=== PATIENT | male | born 1955 | race Caucasian/White ===

== ENCOUNTER 2017-01-14 14:21 | Emergency (ER) | payer BC ==
[2017-01-14 14:54] LABS: Hematocrit 46 % (42-52); Hemoglobin 16.1 g/dl (14.0-18.0); Mean Corpuscular HGB Conc 35 g/dl (31-36); Mean Corpuscular Hemoglobin 32 pg (27-31); Mean Corpuscular Volume 93 fL (80-94); Mean Platelet Volume 8 um3 (7.4-10.4); Red Blood Count 4.99 10^6/ul (4.0-5.4); Red Cell Distribution Width 13 % (10.5-15); White Blood Count 8.3 10^3/ul (3.5-10.8)
--- NOTE | 2017-01-14 15:00 | RAD ---
Indication: Palpitations. 2 views of the chest including dual energy PA views demonstrate no mediastinal shift. Heart is of normal size and configuration. Lung aguilar demonstrate no pleural fluid, pneumonia or pneumothorax. Comparison is made with previous exam dated June 15, 2013. IMPRESSION: No active cardiopulmonary disease is noted.
[2017-01-14 15:09] LABS: Albumin 3.9 g/dL (3.2-5.2); Calcium 9.5 mg/dL (8.6-10.3); EGFR African American 97.4 (>60); EGFR Non-African American 75.7 (>60); Globulin 2.8 g/dL (2-4); Total Bilirubin 0.4 mg/dL (0.2-1.0); Total Protein 6.7 g/dL (6.4-8.9)
[2017-01-14 15:33] LABS: Digoxin 0.8 ng/ml (0.8-2.0)
[2017-01-14 15:47] LABS: TSH (Thyroid Stimulating Horm) 2.05 mcIU/mL (0.34-5.60)
[2017-01-14 16:34] VITALS: BP 105/65
--- NOTE | 2017-01-15 07:49 | ED ---
Bryson Deleon Angela, scribed for Jaime Boyce MD on 01/14/17 at 1521 . HPI Cardiac - HPI Summary HPI Summary: This pt is a 61 y/o male presenting to [facility] c/o atrial fibrillation for 2 weeks. Pt was referred by Dr. Aiken's office for an evaluation and BP of 135/ 100's. Pt reports that he went to his PCP's office last week and was in atrial fibrillation. He states he has felt fatigued then and was told they were going to monitor him. Pt notes his blood pressure yesterday was high and maximum was 148/115. Pt went to his clear coat sprayer's office and was told to come to the ED. He reports he is intermittently in atrial fibrillation but is usually once every 3 months. This time it has been constant for 2 weeks, which is not normal for him. He notes some SOB and chest pressure (rated 5/10 in severity). Pt denies nausea, difficulty swallowing. Pt is currently on lisinopril. Pt is not on any anticoagulants. PMHx includes HI in 2005. During his past HI, pt describes his symptoms as dizziness, unable to focus, "feeling wiped out really fast." He notes he didn't really feel chest pain. - History of Current Complaint Chief Complaint: EDChestPainROMI Stated Complaint: AFIB/HIGH BP Time Seen by Provider: 01/14/17 14:30 Hx Obtained From: Patient Onset/Duration: Started Weeks Ago, Still Present Timing: Constant, Lasting Weeks Current Severity: Moderate Pain Intensity: 5 Pain Scale Used: 0-10 Numeric Chest Pain Location: Diffuse Chest Pain Radiates: No Character: Pressure/Squeezing Associated Signs and Symptoms: Positive: Shortness of Breath. Negative: Chest Pain, Other: - difficulty swallowing - Allergy/Home Medications Allergies/Adverse Reactions: Allergies Allergy/AdvReac Type Severity Reaction Status Date / Time Beta Adrenergic Blockers Allergy Intermediate Hives/Diff. Verified 01/14/17 14: 23 Breathing/I tching Celecoxib [From Celebrex] Allergy Intermediate Hives/Diff. Verified 01/14/17 14: 23 Breathing/I tching Erythromycin Allergy Intermediate Hives Verified 01/14/17 14:23 Glucosamine Allergy Intermediate Hives/Diff. Verified 01/14/17 14:23 Breathing/I tching Niacin Allergy Intermediate Hives/Diff. Verified 01/14/17 14:23 Breathing/I tching Penicillins [PCN] Allergy Intermediate Hives/Diff. Verified 01/14/17 14:23 Breathing/I tching Statins Allergy Intermediate Hives/Diff. Verified 01/14/17 14:23 Breathing/I tching Home Medications: Home Medications Apple Cider Vinegar 500 mg PO BID 01/14/17 [History Confirmed 01/14/17] Aspirin EC Low Dose* [Ecotrin EC Low Dose 81 MG*] 81 mg PO DAILY 01/14/17 [ History Confirmed 01/14/17] Fexofenadine (NF) [Evelina 180 (NF)] 180 mg PO SUTUTHSA 01/14/17 [History Confirmed 01/14/17] Garlic 580 mg PO DAILY 01/14/17 [History Confirmed 01/14/17] [place] [[place] Bowman] 580 mg PO BID 01/14/17 [History Confirmed 01/14/17] Hydrochlorothiazide TAB* [Hydrodiuril TAB*] 25 mg PO DAILY 01/14/17 [History Confirmed 01/14/17] Lisinopril TAB* [Prinivil TAB*] 2.5 mg PO DAILY 01/14/17 [History Confirmed ] Loratadine & Pseudoephedrine [Claritin-D 12 Hour] 1 tab PO .BID MOWEFR 01/14/17 [History Confirmed 01/14/17] Multivitamins/Minerals TAB* [Theragran/minerals TAB*] 1 tab PO DAILY 01/14/17 [ History Confirmed 01/14/17] Nitroglycerin TAB 0.4 MG* 0.4 mg SL Q5M PRN 01/14/17 [History Confirmed 01/14/17 ] Omeprazole CAP* [Prilosec CAP* 20 MG] 20 mg PO QAM 01/14/17 [History Confirmed 01/14/17] Ranitidine TAB (NF) [Zantac TAB (NF)] 150 mg PO BID 01/14/17 [History Confirmed 01/14/17] S-Adenosylmethionine [German-E] 200 mg PO DAILY 01/14/17 [History Confirmed ] [place] ([place]) [Saw [place]] 450 mg PO BID 01/14/17 [History Confirmed 01/14/17] Vitamin B Complex CAP* [B Complex CAP*] 1 cap PO DAILY 01/14/17 [History Confirmed 01/14/17] PMH/Surg Hx/FS Hx/Imm Hx Endocrine/Hematology History: Denies: Hx Diabetes, Hx Thyroid Disease Cardiovascular History: Reports: Hx Angina, Hx Congestive Heart Failure, Hx Coronary Artery Disease, Hx Hypercholesterolemia, Hx Hypertension, Other Cardiovascular Problems/Disorders - CHF, CAD Respiratory History: Reports: Hx Sleep Apnea, Other Respiratory Problems/ Disorders - sleep apnea Denies: Hx Asthma, Hx Chronic Obstructive Pulmonary Disease (COPD) GI History: Reports: Hx Gastrointestinal Bleed, Other GI Disorders - 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 Denies: Hx Ulcer History: Reports: Other Problems/Disorders - acute prostatitis Musculoskeletal History: Reports: Hx Arthritis - bilateral knee - no cartilage, Other Musculoskeletal History - spinal stenosis Sensory History: Reports: Hx Contacts or Glasses Opthamlomology History: Reports: Hx Contacts or Glasses - Surgical History Surgery Procedure, Year, and Place: appendectomy, angioplasty x2, stent 2005, multiple knee surgeries Infectious Disease History: No Infectious Disease History: Denies: Hx Hepatitis, Hx Human Immunodeficiency Virus (HIV), Traveled Outside the [place] in Last 30 Days - Family History Known Family History: Positive: Cardiac Disease - father, Diabetes - father, Other - Mother: CVA, HI, colon CA - Social History Alcohol Use: None Substance Use Type: Reports: None Hx Tobacco Use: No Smoking Status (MU): Never Smoked Tobacco Review of Systems Constitutional: Other - high blood pressure Positive: Fatigue. Negative: Fever, Chills Negative: Other - difficulty swallowing Cardiovascular: Other - chest pressure Positive: Shortness Of Breath Musculoskeletal: Negative Skin: Negative Neurological: Negative All Other Systems Reviewed And Are Negative: Yes Physical Exam - Summary Physical Exam Summary: VITAL SIGNS: Reviewed. GENERAL: Patient is a well-developed and nourished male who is lying comfortable in the stretcher. Patient is not in any acute respiratory distress. HEAD AND FACE: No signs of trauma. No ecchymosis, hematomas or skull depressions. No sinus tenderness. EYES: PERRLA, EOMI x 2, No injected conjunctiva, no nystagmus. EARS: Hearing grossly intact. Ear canals and tympanic membranes are within normal limits. MOUTH: Oropharynx within normal limits. NECK: Supple, trachea is midline, no adenopathy, no JVD, no carotid bruit, no c- spine tenderness, neck with full ROM. CHEST: Symmetric, no tenderness at palpation LUNGS: Clear to auscultation bilaterally. No wheezing or crackles. CVS: Irregularly irregular rate and rhythm, S1 and S2 present, no murmurs or gallops appreciated. ABDOMEN: Soft, non-tender. No signs of distention. No rebound no guarding, and no masses palpated. Bowel sounds are normal. EXTREMITIES: FROM in all major joints, no edema, no cyanosis or clubbing. NEURO: Alert and oriented x 3. No acute neurological deficits. Speech is normal and follows commands. SKIN: Dry and warm Triage Information Reviewed: Yes Vital Signs On Initial Exam: Initial Vitals Temp Pulse Resp BP Pulse Ox 97.5 F 99 16 130/92 98 01/14/17 14:23 01/14/17 14:23 01/14/17 14:23 01/14/17 14:23 01/14/17 14:23 Vital Signs Reviewed: Yes Diagnostics - Vital Signs Vital Signs Temp Pulse Resp BP Pulse Ox 01/14/17 14:42 96 16 99 01/14/17 14:41 134/85 01/14/17 14:23 97.5 F 99 16 130/92 98 - Laboratory Lab Results: Lab Results 01/14/17 01/14/17 01/14/17 Range/Units 14:44 14:44 14:44 WBC 8.3 (3.5-10.8) 10^3/ul RBC 4.99 (4.0-5.4) 10^6/ul Hgb 16.1 (14.0-18.0) g/dl Hct 46 (42-52) % MCV 93 (80-94) fL MCH 32 H (27-31) pg MCHC 35 (31-36) g/dl RDW 13 (10.5-15) % Plt Count 257 (150-450) 10^3/ul MPV 8 (7.4-10.4) um3 Neut % (Auto) 61.3 (38-83) % Lymph % (Auto) 26.1 (25-47) % [place] % (Auto) 9.0 (1-9) % Eos % (Auto) 2.9 (0-6) % Baso % (Auto) 0.7 (0-2) % Absolute Neuts (auto) 5.1 (1.5-7.7) 10^3/ul Absolute Lymphs (auto) 2.2 (1.0-4.8) 10^3/ul Absolute Monos (auto) 0.8 (0-0.8) 10^3/ul Absolute Eos (auto) 0.2 (0-0.6) 10^3/ul Absolute Basos (auto) 0.1 (0-0.2) 10^3/ul Absolute Nucleated RBC 0 10^3/ul Nucleated RBC % 0 Sodium 134 (133-145) mmol/L Potassium 4.0 (3.5-5.0) mmol/L Chloride 100 L (101-111) mmol/L Carbon Dioxide 31 (22-32) mmol/L Anion Gap 3 (2-11) mmol/L BUN 22 (6-24) mg/dL Creatinine 1.00 (0.67-1.17) mg/dL Est GFR ( Amer) 97.4 (>60) Est GFR (Non-Af Amer) 75.7 (>60) BUN/Creatinine Ratio 22.0 H (8-20) Glucose 91 (70-100) mg/dL Lactic Acid (0.5-2.0) mmol/L Calcium 9.5 (8.6-10.3) mg/dL Magnesium 2.0 (1.9-2.7) mg/dL Total Bilirubin 0.40 (0.2-1.0) mg/dL AST 20 (13-39) U/L ALT 10 (7-52) U/L Alkaline Phosphatase 44 (34-104) U/L CK-MB (CK-2) 1.3 (0.6-6.3) ng/mL Troponin I 0.00 (<0.04) ng/mL B-Natriuretic Peptide 68 ( - 100) pg/mL Total Protein 6.7 (6.4-8.9) g/dL Albumin 3.9 (3.2-5.2) g/dL Globulin 2.8 (2-4) g/dL Albumin/Globulin Ratio 1.4 (1-3) TSH Pending Digoxin Pending 01/14/17 Range/Units 14:44 WBC (3.5-10.8) 10^3/ul RBC (4.0-5.4) 10^6/ul Hgb (14.0-18.0) g/dl Hct (42-52) % MCV (80-94) fL MCH (27-31) pg MCHC (31-36) g/dl RDW (10.5-15) % Plt Count (150-450) 10^3/ul MPV (7.4-10.4) um3 Neut % (Auto) (38-83) % Lymph % (Auto) (25-47) % [place] % (Auto) (1-9) % Eos % (Auto) (0-6) % Baso % (Auto) (0-2) % Absolute Neuts (auto) (1.5-7.7) 10^3/ul Absolute Lymphs (auto) (1.0-4.8) 10^3/ul Absolute Monos (auto) (0-0.8) 10^3/ul Absolute Eos (auto) (0-0.6) 10^3/ul Absolute Basos (auto) (0-0.2) 10^3/ul Absolute Nucleated RBC 10^3/ul Nucleated RBC % Sodium (133-145) mmol/L Potassium (3.5-5.0) mmol/L Chloride (101-111) mmol/L Carbon Dioxide (22-32) mmol/L Anion Gap (2-11) mmol/L BUN (6-24) mg/dL Creatinine (0.67-1.17) mg/dL Est GFR ( Amer) (>60) Est GFR (Non-Af Amer) (>60) BUN/Creatinine Ratio (8-20) Glucose (70-100) mg/dL Lactic Acid 0.5 (0.5-2.0) mmol/L Calcium (8.6-10.3) mg/dL Magnesium (1.9-2.7) mg/dL Total Bilirubin (0.2-1.0) mg/dL AST (13-39) U/L ALT (7-52) U/L Alkaline Phosphatase (34-104) U/L CK-MB (CK-2) (0.6-6.3) ng/mL Troponin I (<0.04) ng/mL B-Natriuretic Peptide ( - 100) pg/mL Total Protein (6.4-8.9) g/dL Albumin (3.2-5.2) g/dL Globulin (2-4) g/dL Albumin/Globulin Ratio (1-3) TSH Digoxin Result Diagrams: 01/14/17 14:44 01/14/17 14:44 Lab Statement: Any lab studies that have been ordered have been reviewed, and results considered in the medical decision making process. - Radiology Chest XR Xray Interpretation: No Acute Changes - IMPRESSION: No active cardiopulmonary disease is noted. ED physician has reviewed this radiology report and agrees. Radiology Interpretation Completed By: Radiologist - EKG 1452 Cardiac Rate: NL EKG Rhythm: Atrial Fibrillation - at 81 bpm EKG Interpretation: No ST elevation Disposition - Course Assessment/Plan: This pt is a 61 y/o male presenting to [facility] c/o atrial fibrillation for 2 weeks. Pt was referred by Dr. Aiken's office for an evaluation and BP of 135/100's. Pt reports that he went to his PCP's office last week and was in atrial fibrillation. He states he has felt fatigued then and was told they were going to monitor him. Pt notes his blood pressure yesterday was high and maximum was 148/115. Pt went to his clear coat sprayer's office and was told to come to the ED. He reports he is intermittently in atrial fibrillation but is usually once every 3 months. This time it has been constant for 2 weeks, which is not normal for him. He notes some SOB and chest pressure (rated 5/10 in severity). Pt denies nausea, difficulty swallowing. Pt is currently on lisinopril. Pt is not on any anticoagulants. PMHx includes HI in 2005. During his past HI, pt describes his symptoms as dizziness, unable to focus, "feeling wiped out really fast." He notes he didn't really feel chest pain. Lab work without any significant abnormalities, except for digoxin is 0.8 , which is therapeutic. Troponin is 0.00. Chest XR is negative for an acute pathology. EKG shows atrial fibrillation with no ST elevation. I spoke with Dr. Gaviria and recommended for the pt to be discharged home since he is in a controlled rate. If the pt is not controlled, he recommended we given him metoprolol. Heart rate is controlled and is between 60-80 bpm. Since the pt is in controlled rate, Dr. Gaviria recommended to discharge the pt home with follow up from Dr. Aiken. I discussed the results and the plan with the pt and he understands and agrees. Pt is hemodynamically stable, alert and oriented x3. Pt has no other complaints. He was instructed to return to the ED if the symptoms worsen or return. - Diagnoses Provider Diagnoses: Atrial fibrillation, controlled rate - Physician Notifications Discussed Care Of Patient With: Matthew Gaviria Time Discussed With Above Provider: 15:25 Instructed by Provider To: Other - I discussed pt care with Dr. Gaviria. He recommended to give the pt metoprolol if pt is not in controlled rate, otherwise discharge home. Discharge - Discharge Plan Condition: Stable Disposition: HOME Patient Education Materials: A-fib (Atrial Fibrillation) (ED) Referrals: Rubin Bauman MD [Primary Care Provider] - Nikunj Aiken MD [Medical Doctor] - Additional Instructions: Please follow up with your clear coat sprayer, Dr. Aiken. RETURN TO THE ED FOR ANY WORSENING SYMPTOMS. The documentation as recorded by the Bryson fields Angela accurately reflects the service I personally performed and the decisions made by , Jaime Boyce MD.
== END 2017-01-14 16:43 | disposition home or self-care (01) ==
LOC: ED 14:21
DX: I48.91 Unspecified atrial fibrillation (principal); R06.02 Shortness of breath; R53.83 Other fatigue
CPT/HCPCS: 36415; 71020; 80053; 80162; 82553; 83605; 83735; 83880; 84443; 84484; 85025; 93005; 99283